=== PATIENT | male | born 1955 | race African-American/Black ===

== ENCOUNTER 2017-09-04 10:11 | Emergency (ER) | payer OTHER ==
[~2017-09-04] VITALS: Ht 182.9 cm; Wt 99.8 kg
--- NOTE | 2017-09-04 10:14 | NUR ---
PT A/O X4, C/O RIGHT GROIN PAIN X2 WEEKS. PARAPLEGIC, WHEELCHAIR BOUND. ATTACHED TO MONITOR. AWAITING MD.
--- NOTE | 2017-09-04 10:36 | NUR ---
ORE DIGGER AT BEDSIDE.
--- NOTE | 2017-09-04 10:45 | NUR ---
ULTRSOUND TECH AT BEDSIDE
[2017-09-04 10:53] LABS: CREATININE 1.3 mg/dL (0.6-1.3); POTASSIUM 3.7 mmol/L (3.5-5.1)
[2017-09-04 10:57] LABS: INR 0.95 (0.87-1.13); PROTHROMBIN TIME 9.9 SECS (9.5-12.7)
[2017-09-04 11:08] LABS: BASOPHILS # (AUTO) 0.1 /CMM (0.0-0.2); BASOPHILS % (AUTO) 0.7 % (0.0-2.0); EOSINOPHILS # (AUTO) 0.3 /CMM (0.0-0.7); EOSINOPHILS % (AUTO) 3.2 % (0.0-6.0); HEMATOCRIT 53 % (39-51); HEMOGLOBIN 17.3 g/dL (13.5-17.5); LYMPHOCYTES # (AUTO) 2.2 /CMM (0.8-4.8); LYMPHOCYTES % (AUTO) 20.2 % (20.0-44.0); MEAN CORPUSCULAR HEMOGLOBIN 29 PG (26.0-33.0); MEAN CORPUSCULAR HGB CONC 33 g/dl (31.0-36.0); MEAN CORPUSCULAR VOLUME 89 fL (80-96); MONOCYTES # (AUTO) 0.7 /CMM (0.1-1.30); MONOCYTES % (AUTO) 6.8 % (2.0-12.0); NEUTROPHILS # (AUTO) 7.5 /CMM (1.8-8.9); NEUTROPHILS % (AUTO) 69.1 % (43.0-81.0); PLATELET COUNT (AUTO) 423 /CMM (150-450); RDW COEFFICIENT OF VARIATION 14.2 (11.5-15.0); RED BLOOD CELL COUNT(AUTO) 5.96 MIL/uL (4.5-6.0); WHITE BLOOD COUNT (AUTO) 10.8 K/uL (4.3-11.0)
[2017-09-04 11:39] VITALS: BP 135/83
--- NOTE | 2017-09-04 11:39 | NUR ---
Patient discharged to home in stable condition. Written and verbal after care instructions given. Patient verbalizes understanding of instruction.
== END 2017-09-04 11:40 | disposition home or self-care (01) ==
LOC: ER 10:14
DX: S86.811A Strain of other muscle(s) and tendon(s) at lower leg level, right leg, initial encounter (principal); I10 Essential (primary) hypertension; G82.20 Paraplegia, unspecified; X58.XXXA Exposure to other specified factors, initial encounter; Y93.89 Activity, other specified; Y92.89 Other specified places as the place of occurrence of the external cause; Y99.9 Unspecified external cause status
CPT/HCPCS: 36415; 72170; 73551; 80048; 85025; 85730; 93971; 99285; A4606; Z7610; 73552